=== PATIENT | female | born 1955 | race Caucasian/White ===

== ENCOUNTER 2019-12-24 14:17 | Inpatient (IN) | payer MEDICARE, OTHER ==
[~2019-12-24] VITALS: Ht 165.1 cm; Wt 77.2 kg
[2019-12-24] MEDS ORDERED: DUTOPROL PO (14:37)
[2019-12-24] MEDS ORDERED: VASOTEC 10M10 MG/TAB PO (14:38)
[2019-12-24 15:19] LABS: HEMATOCRIT 44.3 % (37.0-47.0); HEMOGLOBIN 15.8 g/dl (12.5-16.0); MEAN CELL VOLUME 89 fl (80.0-100.0); MEAN CORPUSCULAR HEMOGLOBIN 32 pg (27.0-31.0); MEAN CORPUSCULAR HGB CONC 36 g/dl (33.0-37.0); PLATELET COUNT 186 K/mm3 (130-400); REDCELL DISTRIBUTION WIDTH-CV 12.6 % (11.5-14.5)
[2019-12-24 15:26] LABS: ALANINE AMINOTRANSFERASE 47 U/L (4-34); ALBUMIN 4.8 gm/dL (3.5-5.0); ALKALINE PHOSPHATASE 97 U/L (50-136); ANION GAP 13 mmol/L (7-16); AST,SGOT 46 U/L (15-37); BILIRUBIN,TOTAL 1.2 mg/dL (0.0-1.0); BLOOD UREA NITROGEN 23 mg/dL (7-17); CALCIUM 9.3 mg/dL (8.4-10.2); CARBON DIOXIDE 21 mmol/L (22-30); CHLORIDE 104 mmol/L (98-107); CREATININE, serum 0.72 (0.52-1.25); GLUCOSE 139 mg/dL (74-106); LIPASE 33 U/L (23-300); POTASSIUM 3.6 mmol/L (3.4-5.0); SODIUM 138 mmol/L (137-145); TOTAL PROTEIN 8.3 gm/dL (6.4-8.2)
[2019-12-24 15:30] LABS: C-REACTIVE PROTEIN < 0.5 mg/dL (0.0-0.9)
[2019-12-24 15:43] LABS: BAND 3 % (0-10); LYMPHOCYTE 2 % (20.0-51.0); NEUTROPHILS 90 % (42.0-75.2); PLATELET ESTIMATE NORMAL (NORMAL)
[2019-12-24] MEDS ORDERED: SYNTHROID0.075 MG/T PO (16:06)
[2019-12-24] MEDS ORDERED: VASOTEC 5MG5 MG/TAB PO (16:06)
--- NOTE | 2019-12-24 16:45 | NUR ---
PATIENT ARRIVED TO ROOM 342 FROM ED.
[2019-12-24 17:07] VITALS: BP 148/80; PULSE 85; TEMP 98
[2019-12-24] MEDS ORDERED: LOPRESSOR HCT 21 TAB PO (18:10)
--- NOTE | 2019-12-24 18:55 | NUR ---
THIS NURSE AND GALILEA SHEETS ENTERED THE ROOM DURING SHIFT REPORT TO FIND THE PATIENT VOMITING INTO AN EMESIS BASIN. PATIENT REPORTS THAT THE PAIN MEDICATIONS GIVEN ARE NOT HELPING THE PAIN. THIS NURSE CALLED AND NOTIFIED . TORB FOR NG TUBE TO LIS; PHENERGAN 12.5MG IV Q6H PRN; AND ORDER GIVEN TO INCREASE MORPHINE FROM 2MG TO 4MG IV Q2H PRN FROM TO THIS NURSE. GALILEA SHEETS UPDATED WITH ADDITIONAL ORDERS FOR PATIENT. REPORT GIVEN TO GALILEA SHEETS.
--- NOTE | 2019-12-24 19:40 | NUR ---
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 Assessment complete. A&Ox3-drowsy. Has had another episode of [id number]/brown fluid. C/O pain to abdomen-rating pain 8/10 to all quadrants-described as pressure/sharp. Morphine given per dr order. 18F NG placed at this time-air bolus placement check-marked at 59cm. Immediate return of 500mls brown fluid. Tolerated well. Denies current needs. Call light in reach. Will monitor.
[2019-12-24 19:55] VITALS: BP 150/80; PULSE 100; TEMP 98.3
[2019-12-24 23:59] VITALS: BP 151/82; PULSE 111; TEMP 98.3
--- NOTE | 2019-12-25 02:50 | NUR ---
Called with c/o pain to abdomen-ratimg 10/29 to abdomen-described as sharp/ache. Morphine given per dr order.
[2019-12-25 04:14] VITALS: BP 138/71; PULSE 110; TEMP 98.7
[2019-12-25 07:10] LABS: HEMATOCRIT 42.5 % (37.0-47.0); HEMOGLOBIN 14.6 g/dl (12.5-16.0); MEAN CELL VOLUME 93 fl (80.0-100.0); MEAN CORPUSCULAR HEMOGLOBIN 32 pg (27.0-31.0); MEAN CORPUSCULAR HGB CONC 34 g/dl (33.0-37.0); MEAN PLATELET VOLUME 9.9 fl (7.4-10.4); PLATELET COUNT 146 K/mm3 (130-400); RED BLOOD COUNT 4.57 M/mm3 (4.10-5.30); REDCELL DISTRIBUTION WIDTH-CV 13.1 % (11.5-14.5)
[2019-12-25 07:21] LABS: ALBUMIN 3.9 gm/dL (3.5-5.0); CALCIUM 8.3 mg/dL (8.4-10.2); CREATININE, serum 0.73 (0.52-1.25); POTASSIUM 3.4 mmol/L (3.4-5.0); TOTAL PROTEIN 6.8 gm/dL (6.4-8.2)
[2019-12-25 07:35] LABS: BAND 60 % (0-10); LYMPHOCYTE 14 % (20.0-51.0); NEUTROPHILS 16 % (42.0-75.2); PLATELET ESTIMATE NORMAL (NORMAL)
--- NOTE | 2019-12-25 08:00 | NUR ---
Patient up to restroom, changed ostomy. Having increased output from ostomy. States she feels better this AM. Alert and oriented x 3. Assessment complete. NG to LIS with light brown output noted. Patient taking ice chips. Fluids infusing per orders to right hand IV. SCDs to BLE. Denies pain or further needs at this time.
[2019-12-25 08:52] VITALS: BP 131/68; PULSE 88; TEMP 98
--- NOTE | 2019-12-25 09:00 | NUR ---
Notified Dr. Sebastian that patient is having gas and output from ostomy. Notified of WBC of 1.6.
--- NOTE | 2019-12-25 09:28 | NUR ---
NG tube clamped per orders; will continue to monitor.
--- NOTE | 2019-12-25 11:52 | NUR ---
Dr. Carty in to see patient.
--- NOTE | 2019-12-25 12:19 | NUR ---
First visit from the line driver. No needs right now.
[2019-12-25 12:50] VITALS: BP 121/60; PULSE 84; TEMP 98.8
--- NOTE | 2019-12-25 13:51 | NUR ---
Patient up ambulating in halls
--- NOTE | 2019-12-25 14:03 | NUR ---
Paper Baling Machine Operator met with patient and patient's , Andrew (ph#[phone]) to discuss discharge planning. Patient lives in [place], [place] with her and sees Dr. Barba for primary care. Patient normally obtains her medications at [facility] with no difficulties. Patient does not use any DME and reports independence with ADLS. Patient states her DPOA-HC is her , Andrew but SW did not locate copy in EMR. Patient plans to return home upon discharge. SW will continue to follow as needed.
--- NOTE | 2019-12-25 14:51 | NUR ---
Patient sitting up in bed, eating lunch. States she continues to have output from ostomy, appears "normal" to her. Denies further needs at this time.
[2019-12-25 15:51] VITALS: BP 132/54; PULSE 84; TEMP 98.5
[2019-12-25 17:38] VITALS: TEMP 98.7
--- NOTE | 2019-12-25 19:01 | NUR ---
Patient has done well throughout the day, independent in room. Fluids continue to infuing per orders, patient states mild abdominal cramping this afternoon. NG maintained, clamped. Patient would like NG to stay in place until the AM to see how she does. Continues having output from ostomy. Denies further needs at this time. Will report off to shift production associate.
--- NOTE | 2019-12-25 19:37 | NUR ---
Pt is alert and oriented, roomair when this nurse was in the pt room for bedshift report. Zofran provided for nausea on pt request. Will keep monitoring.
[2019-12-25 20:56] VITALS: BP 131/63; PULSE 79; TEMP 98.1
--- NOTE | 2019-12-25 23:08 | NUR ---
Pt assessment completed and charted. Helped pt walking into the hallway and back to her bed. I/V fluid is running without complications. N/G tube is clamped and pt wants to keep the tube untill Wednesday to see how she does with oral intake. Ostomy is in place, working without complications. Pt is independent and on roomair. Pt is settled on her bed, call light is on reach. No further needs at this time.
[2019-12-26 00:33] VITALS: BP 132/51; PULSE 77; TEMP 98.9
--- NOTE | 2019-12-26 01:29 | NUR ---
Tylenol provided as per pt request for 10 headache as well as cup of black tea. Pt is resting on her bed, will keep monitoring.
[2019-12-26 04:14] VITALS: BP 133/61; PULSE 74; TEMP 98.3
--- NOTE | 2019-12-26 05:32 | NUR ---
Pt had an uneventful night. Slept through out the night. I/V fluid running without complications. No further needs at this time.
[2019-12-26 06:47] LABS: MEAN CELL VOLUME 92 fl (80.0-100.0); MEAN CORPUSCULAR HGB CONC 34 g/dl (33.0-37.0); MEAN PLATELET VOLUME 9.9 fl (7.4-10.4); PLATELET COUNT 110 K/mm3 (130-400); RED BLOOD COUNT 3.81 M/mm3 (4.10-5.30); REDCELL DISTRIBUTION WIDTH-CV 12.9 % (11.5-14.5)
[2019-12-26 06:51] LABS: HEMOGLOBIN 11.9 g/dl (12.5-16.0); MEAN CORPUSCULAR HEMOGLOBIN 31 pg (27.0-31.0)
--- NOTE | 2019-12-26 07:33 | NUR ---
Handover provided to the day shift nurse, GALILEA Lyons. No further needs at this time.
[2019-12-26 07:41] LABS: BAND 18 % (0-10); BASOPHIL 2 % (0-2); EOSINOPHIL 8 % (0-4); LYMPHOCYTE 52 % (20.0-51.0); NEUTROPHILS 10 % (42.0-75.2); PLATELET ESTIMATE DECREASED (NORMAL)
--- NOTE | 2019-12-26 08:00 | NUR ---
Patient sitting up eating breakfast. Alert and oriented x 3. Assessment complete. Patient states she is having output from ostomy, states it is loose this AM. Denies pain at this time, but states occassional abd cramping. NG tube clamped. Denies further needs at this time.
[2019-12-26 08:59] VITALS: BP 119/54; PULSE 68; TEMP 98.2
--- NOTE | 2019-12-26 09:00 | NUR ---
NG tube discontinued per orders, patient tolerated procedure well. Denies further needs at this time. Spouse at bedside.
--- NOTE | 2019-12-26 11:00 | NUR ---
Patient ambulating in halls, steady gait.
[2019-12-26 12:49] VITALS: BP 118/71; PULSE 63; TEMP 98.2
--- NOTE | 2019-12-26 13:36 | NUR ---
Patient ambulating in halls, denies pain or further needs at this time.
--- NOTE | 2019-12-26 14:45 | NUR ---
Discharge education provided to patient. Educated on when to call provider and low fiber diet. INT discontinued, catheter tip intact. Denies further needs at this time.
--- NOTE | 2019-12-26 15:21 | NUR ---
Patient ambulated out with surgical staff. Denies further needs at this time.
[2019-12-26 15:56] VITALS: BP 104/74; PULSE 86; TEMP 98.2
== END 2019-12-26 15:21 | disposition home or self-care (01) | DRG 390 ==
LOC: COL.ER 14:17 → SURG 16:13
PROVIDERS: Emergency Medicine; Surgery; ADMIT Surgery
DX: K56.609 Unspecified intestinal obstruction, unspecified as to partial versus complete obstruction (principal); I10 Essential (primary) hypertension; E03.9 Hypothyroidism, unspecified; Z85.048 Personal history of other malignant neoplasm of rectum, rectosigmoid junction, and anus; Z87.891 Personal history of nicotine dependence; Z93.3 Colostomy status; Z85.05 Personal history of malignant neoplasm of liver
CPT/HCPCS: J1170; J2270; J2405; J2550; J7030; J7120; Q9967